=== PATIENT | female | born 1950 | race Caucasian/White ===

== ENCOUNTER 2016-11-03 08:32 | Outpatient (CLI) | payer OTHER | END 2016-11-03 20:15 | disposition home or self-care (01) | LOC: SMA 08:32 | DX: Z12.31 Encounter for screening mammogram for malignant neoplasm of breast (principal) | CPT/HCPCS: 76881; G0202 ==

== ENCOUNTER 2016-11-07 08:32 | Outpatient (CLI) | payer OTHER | END 2016-11-07 18:43 | disposition home or self-care (01) | LOC: SMA 08:32 | PROVIDERS: ATTEND Family Medicine | DX: R92.2 Inconclusive mammogram (principal) | CPT/HCPCS: G0206 ==

== ENCOUNTER 2017-05-27 15:34 | Outpatient (CLI) | payer OTHER | END 2017-05-27 17:44 | disposition home or self-care (01) | LOC: SRD 15:34 | DX: M17.11 Unilateral primary osteoarthritis, right knee (principal) | CPT/HCPCS: 73564 ==

== ENCOUNTER 2017-10-02 09:31 | Outpatient (CLI) | payer OTHER | END 2017-10-02 18:35 | disposition home or self-care (01) | LOC: SRD 09:31 | PROVIDERS: ATTEND Family Medicine | DX: M77.32 Calcaneal spur, left foot (principal); M25.562 Pain in left knee | CPT/HCPCS: 73564 ==

== ENCOUNTER 2017-11-10 13:12 | Outpatient (CLI) | payer OTHER | END 2017-11-10 20:08 | disposition home or self-care (01) | LOC: SRD 13:12 | PROVIDERS: ATTEND Family Medicine | DX: M17.11 Unilateral primary osteoarthritis, right knee (principal) | CPT/HCPCS: 73564 ==

== ENCOUNTER 2023-03-27 05:04 | Emergency (ER) | payer OTHER ==
[~2023-03-27] VITALS: Ht 162.6 cm; Wt 77.1 kg
[2023-03-27 05:05] VITALS: BP_SYST 149; PULSE 88; RESP 22; TEMP 97.4; O2SAT 98
[2023-03-27] MEDS ORDERED: BACITRACIN 1 GM OINT TP ONE (05:19)
[2023-03-27] MEDS ORDERED: IBUPROFEN 600 MG TABLET PO ONE (05:30)
[2023-03-27 05:33] VITALS: BP_SYST 149; PULSE 88; RESP 22; TEMP 97.4; O2SAT 98
== END 2023-03-27 05:33 | disposition home or self-care (01) ==
LOC: SED 05:04
DX: S61.211A Laceration without foreign body of left index finger without damage to nail, initial encounter (principal); I10 Essential (primary) hypertension; W45.8XXA Other foreign body or object entering through skin, initial encounter; Y93.89 Activity, other specified; Y92.89 Other specified places as the place of occurrence of the external cause; Y99.8 Other external cause status
CPT/HCPCS: 99282